=== PATIENT | female | born 1965 | race Caucasian/White ===

== ENCOUNTER → 2017-06-15 | Outpatient (CLI) | payer OTHER ==
[~2017-06-15] MED LIST: BUPR150T2 PO; OXYACE5T PO; RXOXYACE PO
[2017-06-16 11:17] LABS: HPV Genotype 16 Not Detected (NOTDET); HPV Genotype 18 Not Detected (NOTDET)
[2017-06-21 09:39] LABS: HPV High Risk Other Not Detected (NOTDET)
== END | disposition home or self-care (01) ==
LOC: LAB 11:41
PROVIDERS: Obstetrics & Gynecology
DX: Z01.419 Encounter for gynecological examination (general) (routine) without abnormal findings (principal)
CPT/HCPCS: 87624; G0123

== ENCOUNTER → 2021-01-31 | Outpatient (CLI) | payer OTHER | END | disposition home or self-care (01) | LOC: LAB SHORT 13:23 → LAB 13:23 | DX: N95.0 Postmenopausal bleeding (principal) | CPT/HCPCS: 88305 ==

== ENCOUNTER 2022-01-09 11:05 | Day surgery (SDC) | payer OTHER ==
[~2022-01-09] VITALS: Ht 157.5 cm; Wt 130.2 kg
[2022-01-09] MEDS ORDERED: TRIA50 PO (11:22)
[2022-01-09] MEDS ORDERED: AMPDEX5 PO (11:22)
[2022-01-09] MEDS ORDERED: ALBU2.5V5 (11:23)
--- NOTE | 2022-01-09 11:57 | NUR ---
Ambulatory in Day Surgery. History, Chart, Medications and Allergies reviewed before start of procedure. Patient States Post-Procedure ride home has been arranged WITH DAUGHTER. PT REPORTS NOT BEING GIVEN SHOWER SCRUBS. NONE DONE.
--- NOTE | 2022-01-09 12:38 | NUR ---
01/09/22 1238 Jac Doan NO ABX PER
--- NOTE | 2022-01-09 14:40 | NUR ---
Patient up to Ambulate independently. Gait steady. Discharge instructions reviewed with patient. Patient verbalizes understanding. Copy given to patient to take home. Patient States Post-Procedure ride home has been arranged. Discharged via wheelchair to private car for ride home. PT VOIDED PRIOR TO DISCHAGE. PT WAS GIVEN MADONNA PANTIES AND PADS PER HER REQ.
== END 2022-01-09 14:40 | disposition home or self-care (01) ==
LOC: ORSCMMR 11:05 → ORD 11:45 → ORSCMMR 14:40
PROVIDERS: Obstetrics & Gynecology
PROC: 0UDB8ZX Extraction of Endometrium, Via Natural or Artificial Opening Endoscopic, Diagnostic (ICD-10-PCS; principal; 2022-01-09 11:45)
DX: N95.0 Postmenopausal bleeding (principal); R93.89 Abnormal findings on diagnostic imaging of other specified body structures; D25.0 Submucous leiomyoma of uterus; I10 Essential (primary) hypertension; J45.909 Unspecified asthma, uncomplicated; Z79.899 Other long term (current) drug therapy; F98.8 Other specified behavioral and emotional disorders with onset usually occurring in childhood and adolescence; E66.01 Morbid (severe) obesity due to excess calories; Z68.43 Body mass index [BMI] 50.0-59.9, adult
CPT/HCPCS: 88305; J1100; J1885; J2250; J2405; J2704; J3010; J7120

== ENCOUNTER 2025-01-23 13:56 | Day surgery (SDC) | payer OTHER ==
[~2025-01-23] VITALS: Ht 157.5 cm; Wt 137.6 kg
[2025-01-23] VITALS (8 sets, daily range): BP systolic 131–156; BP diastolic 77–92
[~2025-01-23 13:56] MED LIST changes: +ALBU2.5V5; +ALBU90OI INH; +AMPDEX10 PO; +AMPDEX5 PO; +Avita20 G1 TOP; +CLIN1TS TOP; +DYAZIDE 37.5-21 EACH PO; +Flonase 0.05% N16 GM
--- NOTE | 2025-01-23 14:42 | NUR ---
Ambulatory in Day Surgery. History, Chart, Medications and Allergies reviewed before start of procedure. Patient confirms NPO status and agrees with scheduled surgery. Pre-Op teaching done. Pt verbalizes understanding. Patient States Post-Procedure ride home has been arranged. Pt belongings placed underneath elan for safekeeping. Pt glasses and invisalign given to Duke BENZ to take to PACU for safekeeping.
[2025-01-23] MEDS ORDERED: FentaNYL Citrate 50 MCG/ML 2 ML Injection ONE (14:44)
[2025-01-23] MEDS ORDERED: Rocuronium Bromide 10 MG/ML 5ML Injection IV ONE (14:45)
[2025-01-23] MEDS ORDERED: Ketorolac Tromethamine 30mg Vial ONE (14:58)
[2025-01-23] MEDS ORDERED: Dexamethasone Sod Phos 10 MG/ML 1ML VIAL ONE (14:58)
[2025-01-23] MEDS ORDERED: Ondansetron HCl 2 MG / ML 2ML Vial ONE (14:58)
[2025-01-23] MEDS ORDERED: Sugammadex Sodium 200 MG/2ML SDV (100 MG/ML) ONE (15:17)
--- NOTE | 2025-01-23 15:19 | NUR ---
01/23/[address] PLACED "LILETTA" IUD AT 1519. EXPIRATION DATE OF 06/2029.
[2025-01-23] MEDS ORDERED: Ondansetron HCl 2 MG / ML 2ML Vial IV PRN (15:25)
[2025-01-23] MEDS ORDERED: Prochlorperazine Edisylate 10 mg Vial IV PRN (15:25)
[2025-01-23] MEDS ORDERED: Albuterol 2.5 MG/3 ML VIAL INH PRN (15:25)
[2025-01-23] MEDS ORDERED: Labetalol HCL 5 MG/ML 4ML Injection (Single Dose) IV PRN (15:25)
[2025-01-23] MEDS ORDERED: FentaNYL Citrate 50 MCG/ML 2 ML Injection IV PRN ×2 (15:25)
[2025-01-23] MEDS ORDERED: HYDROmorphone HCl/Pf 1MG SYR IV PRN (15:25)
--- NOTE | 2025-01-23 16:10 | NUR ---
REPORT RECEIVED FROM KAYLAH BENZ. VSS. PT ON RA. PT A&OX4. PT ABLE TO REPOSITION SELF IN BED. PT REQUESTING PO FLUIDS AND TOLERATING THEM WELL. PT DENIES PAIN, REPORTS A SORE THROAT AND SAYS SHE MIGHT BE "ON THE VERGE OF NAUSEA". PT HAS MERARI PAD IN PLACE THAT IS CDI.
--- NOTE | 2025-01-23 16:45 | NUR ---
Patient up to Ambulate independently. Gait steady. VSS AND CONSISTENT WITH PT BASELINE. PT HAS NO COMPLAINTS AND VERBALIZES READINESS TO GO HOME. Discharge instructions reviewed with patient. Patient verbalizes understanding. Copy given to patient to take home. Pt zoya pad remains CDI. Patient States Post-Procedure ride home has been arranged. Discharged via wheelchair to private car for ride home. Pt belongings returned to pt.
== END 2025-01-23 16:51 | disposition home or self-care (01) ==
LOC: ORSCMMR 13:56 → ORD 15:00 → ORSCMMR 16:51
PROVIDERS: Obstetrics & Gynecology
PROC: 0UDB8ZX Extraction of Endometrium, Via Natural or Artificial Opening Endoscopic, Diagnostic (ICD-10-PCS; principal; 2025-01-23 15:00)
PROC: 0UH97HZ Insertion of Contraceptive Device into Uterus, Via Natural or Artificial Opening (ICD-10-PCS; principal; 2025-01-23 15:00)
DX: N95.0 Postmenopausal bleeding (principal); R93.89 Abnormal findings on diagnostic imaging of other specified body structures; D25.0 Submucous leiomyoma of uterus; Z30.430 Encounter for insertion of intrauterine contraceptive device; I10 Essential (primary) hypertension; J45.909 Unspecified asthma, uncomplicated; F98.8 Other specified behavioral and emotional disorders with onset usually occurring in childhood and adolescence; E66.01 Morbid (severe) obesity due to excess calories; Z68.43 Body mass index [BMI] 50.0-59.9, adult; Z79.899 Other long term (current) drug therapy
CPT/HCPCS: 88305; J1100; J1885; J2405; J2704; J3010; J7120; J7297